=== PATIENT | female | born 1975 | race Caucasian/White ===

== ENCOUNTER 2016-12-26 20:26 | Emergency (ER) | payer MEDICAID, OTHER ==
[~2016-12-26] VITALS: Ht 167.6 cm; Wt 79.7 kg
[2016-12-26 20:30] VITALS: BP 133/92
[2016-12-26] MEDS ORDERED: ALBUTEROL SULFATE 2.5 MG/3 ML ONE (21:26)
[2016-12-26] MEDS ORDERED: ALBUTEROL SULFATE 2.5 MG/3 ML NPPB ONE (21:30)
== END 2016-12-26 22:47 | disposition home or self-care (01) ==
LOC: ED 22:30
DX: J02.8 Acute pharyngitis due to other specified organisms (principal); B97.89 Other viral agents as the cause of diseases classified elsewhere
CPT/HCPCS: 36415; 71020; 85379; 93005; 94640; 99285; J7512; J7613

== ENCOUNTER 2017-01-27 14:32 | Emergency (ER) | payer MEDICAID ==
[~2017-01-27] VITALS: Ht 167.6 cm; Wt 79.4 kg
[2017-01-27 14:34] VITALS: BP 123/80
== END 2017-01-27 14:58 | disposition home or self-care (01) ==
LOC: ED 14:45
DX: J01.00 Acute maxillary sinusitis, unspecified (principal)
CPT/HCPCS: 99283

== ENCOUNTER 2019-08-05 17:52 | Emergency (ER) | payer MEDICAID ==
[~2019-08-05] VITALS: Ht 170.2 cm; Wt 74.6 kg
--- NOTE | 2019-08-05 18:21 | NUR ---
INSECTICIDE SPRAYER: PT AMBULATORY TO ROOM FROM LOBBY
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
[2019-08-05] MEDS ORDERED: ONDANSETRON 2MG/ML, 2ML ONE (19:44)
[2019-08-05] MEDS ORDERED: KETOROLAC 30 MG/1 ML ONE (19:44)
[2019-08-05 19:49] LABS: BASOPHILS % (AUTO) 0 % (0-1); EOSINOPHILS # (AUTO) 0.06 x10^3/uL (0-0.4); EOSINOPHILS % (AUTO) 1 % (1-7); LYMPHOCYTES # (AUTO) 0.79 x10^3/uL (1-3.4); LYMPHOCYTES % (AUTO) 8 % (22-44); MD NO; MEAN CORPUSCULAR HEMOGLOBIN 28.5 pg (27.0-34.8); MEAN CORPUSCULAR HGB CONC 32.1 g/dL (32.4-35.8); MEAN CORPUSCULAR VOLUME 88.9 fL (80-100); MEAN PLATELET VOLUME 7.1 fL (7.4-10.4); MONOCYTES # (AUTO) 0.57 x10^3/uL (0.2-0.8); MONOCYTES % (AUTO) 6 % (2-9); NEUTROPHILS # (AUTO) 8.31 x10^3/uL (1.8-6.8); NEUTROPHILS % (AUTO) 85 % (42-75); PLATELET COUNT 408 x10^3/uL (130-400); RED BLOOD COUNT 4.17 x10^6/uL (3.82-5.3); RED CELL DISTRIBUTION WIDTH 14.7 % (9.6-15.2)
[2019-08-05 19:59] LABS: ALANINE AMINOTRANSFERASE 22 U/L (12-78); ALBUMIN 2.9 g/dL (3.4-5.0); ANION GAP 6 mmol/L (5-15); CALCIUM 8.4 mg/dL (8.5-10.1); CHLORIDE 113 mmol/L (98-107); CREATININE 0.64 mg/dL (0.55-1.02)
[2019-08-05] MEDS ORDERED: ONDANSETRON 2MG/ML, 2ML IVPush ONE (20:00)
[2019-08-05] MEDS ORDERED: SODIUM CHLORIDE 0.9% 1,000ML IVBOLUS ONE (20:00)
[2019-08-05] MEDS ORDERED: KETOROLAC 30 MG/1 ML IVPush ONE (20:00)
[2019-08-05] MEDS ORDERED: SODIUM CHLORIDE FLUSH 10ML SYR IVF ONE (20:00)
[2019-08-05 20:01] LABS: ALKALINE PHOSPHATASE 79 U/L (45-117); BILIRUBIN,TOTAL 0.2 mg/dL (0.2-1.0)
[2019-08-05 20:47] LABS: HCG UR SG 1.033 (1.003-1.030)
[2019-08-05] MEDS ORDERED: morphine SULFATE 10 MG/ML, 1ML IVPush ONE (21:00)
[2019-08-05 21:10] LABS: MICROSCOPIC INDICATED
[2019-08-05] MEDS ORDERED: MORPHINE SULFATE 4 MG/ML, 1ML ONE (21:16)
[2019-08-05] MEDS ORDERED: CEFTRIAXONE PMX 1GM/50ML 50 ML ONE (21:21)
[2019-08-05 21:23] VITALS: BP 117/66
--- NOTE | 2019-08-05 21:24 | NUR ---
Pt medicated per emar.
[2019-08-05] MEDS ORDERED: CEFTRIAXONE PMX 1GM/50ML 50 ML IV ONE (21:30)
[2019-08-05 21:40] LABS: CLUE CELLS NONE SEEN (NONE SEEN)
[2019-08-05 21:41] LABS: WET PREP WBCS FEW (FEW)
--- NOTE | 2019-08-05 21:50 | NUR ---
Patient/Caregiver given discharge instructions and they have confirmed that they understand the instructions. Patient ambulatory with steady gait.
[2019-08-05] MEDS ORDERED: OMNIPAQUE 350 MG/ML, 100ML BOTTLE ONE (22:27)
== END 2019-08-05 21:52 | disposition home or self-care (01) ==
LOC: ED 18:37
DX: A54.85 Gonococcal peritonitis (principal); R10.2 Pelvic and perineal pain; A74.81 Chlamydial peritonitis; A54.03 Gonococcal cervicitis, unspecified
CPT/HCPCS: 36415; 74177; 80053; 81001; 81025; 85025; 87086; 87210; 87491; 87591; 87808; 96365; 96375; 99285; J0696; J1885; J2270; J2405; J7030; Q9967

== ENCOUNTER 2020-04-17 17:29 | Emergency (ER) | payer MEDICAID ==
[~2020-04-17] VITALS: Ht 167.6 cm; Wt 83.4 kg
[2020-04-17 17:32] VITALS: BP 124/80
--- NOTE | 2020-04-17 17:54 | NUR ---
MEDICAL TECHNOLOGIST HEMATOLOGY: PT BROUGHT BACK TO ROOM, SABAS HERNANDEZ AT BEDSIDE FOR I&D.
--- NOTE | 2020-04-17 18:11 | NUR ---
Patient given discharge instructions and they have confirmed that they understand the instructions. Patient ambulatory with steady gait.
== END 2020-04-17 18:13 | disposition home or self-care (01) ==
LOC: ED 18:00
DX: K04.7 Periapical abscess without sinus (principal); K02.9 Dental caries, unspecified; K08.89 Other specified disorders of teeth and supporting structures; F17.200 Nicotine dependence, unspecified, uncomplicated
CPT/HCPCS: 41800; 99284